=== PATIENT | female | born 1960 | race Caucasian/White ===

== ENCOUNTER 2020-01-11 17:35 | Outpatient (CLI) | payer OTHER | END 2020-01-11 17:36 | disposition home or self-care (01) | LOC: LAB 17:35 | PROVIDERS: ATTEND Family Medicine | DX: Z53.9 Procedure and treatment not carried out, unspecified reason (principal) ==

== ENCOUNTER 2020-01-12 08:00 | Outpatient (CLI) | payer OTHER ==
[2020-01-12 15:02] LABS: BILIRUBIN,URINE NEGATIVE (NEGATIVE); GLUCOSE, URINE (UA) >=1000 mg/dL (NEGATIVE); KETONES,URINE (UA) NEGATIVE (NEGATIVE); LEUKOCYTE ESTERASE, URINE NEGATIVE (NEGATIVE); NITRITE,URINE NEGATIVE (NEGATIVE); OCCULT BLOOD,URINE NEGATIVE (NEGATIVE); PROTEIN,URINE NEGATIVE (NEGATIVE); UROBILINOGEN,URINE 0.2 (NORMAL) E.U./dL (NORMAL)
[2020-01-12 15:04] LABS: CLARITY,URINE CLEAR (CLEAR)
== END 2020-01-12 23:59 | disposition home or self-care (01) ==
LOC: LAB.R 08:00
DX: R30.0 Dysuria (principal)
CPT/HCPCS: 81001; 81003; 87086